=== PATIENT | male | born 1990 ===

== ENCOUNTER 2017-07-01 11:43 | Emergency (ER) | payer OTHER ==
[2017-07-01 11:47] VITALS: BMI 48.6
[2017-07-01] MEDS ORDERED: Oxycodone/Acetaminophen 5/325 mg Tab PO ONE (13:15)
--- NOTE | 2017-07-01 13:35 | ED PDOC ---
Lower Extremity Pain/Injury Time Seen by Provider: 07/01/17 11:50 Chief Complaint (Nursing): Lower Extremity Problem/Injury Chief Complaint (Provider): Right knee injury History Per: Patient History/Exam Limitations: no limitations Onset/Duration Of Symptoms: Mins Current Symptoms Are (Timing): Still Present Additional Complaint(s): 26yo male, presents to ED for evaluation of right knee pain present since earlier today. Patient states he was lifting a heavy object and did not bear his weight properly after which his knee gave out and he fell. Patient states he has not been able to bear weight, bend or move his right knee. He denies any numbness or tingling. No other complaints. - Knee Description Of Injury: Twisted Currently Unable To: Bear Weight, Straighten, Bend Or Move Past Medical History Reviewed: Historical Data, Nursing Documentation, Vital Signs Vital Signs: Last Vital Signs Temp 98.3 F 07/01/17 11:48 Pulse 69 07/01/17 11:48 Resp 18 07/01/17 11:48 BP 126/56 L 07/01/17 11:48 Pulse Ox 98 07/01/17 11:48 - Medical History PMH: No Chronic Diseases - Surgical History Surgical History: No Surg Hx - Family History Family History: States: No Known Family Hx - Social History Current smoker - smoking cessation education provided: No Alcohol: None Drugs: Denies - Immunization History Hx Tetanus Toxoid Vaccination: No Hx Influenza Vaccination: No Hx Pneumococcal Vaccination: No - Home Medications Home Medications: Ambulatory Orders Medication Instructions Recorded No Known Home Med 03/21/17 - Allergies Allergies/Adverse Reactions: Allergies Allergy/AdvReac Type Severity Reaction Status Date / Time No Known Allergies Allergy Unverified 03/21/17 21:34 Review of Systems ROS Statement: Except As Marked, All Systems Reviewed And Found Negative Musculoskeletal: Positive for: Leg Pain (right knee pain) Neurological: Negative for: Weakness, Numbness Physical Exam - Reviewed Nursing Documentation Reviewed: Yes Vital Signs Reviewed: Yes - Physical Exam Appears: Positive for: Non-toxic. Negative for: Well (+ patient is obese) Skin: Positive for: Normal Color Cardiovascular/Chest: Positive for: Regular Rate, Rhythm Respiratory: Positive for: Normal Breath Sounds. Negative for: Respiratory Distress Extremity: Positive for: Deformity (right knee cap laterally dislocated; neurovascularly intact), Swelling (right knee). Negative for: Normal ROM Neurologic/Psych: Positive for: Alert, Oriented - Laboratory Results Result Diagrams: 07/01/17 16:29 07/01/17 16:29 - ECG O2 Sat by Pulse Oximetry: 98 (RA) Pulse Ox Interpretation: Normal Medical Decision Making Medical Decision Making: Time: 1314 Impression: right knee injury, rule out dislocation Plan: -- XR Right knee -- Percocet 1 tab PO Reassess Time: 1520 XR Right Knee FINDINGS: BONES: There is no acute fracture identified. There is lateral dislocation of the patella. JOINTS: The medial and lateral joint compartments are preserved. JOINT EFFUSION: None. OTHER FINDINGS: None. IMPRESSION: Lateral patellar dislocation Time: 1614 Patient with persistent pain, morphine 4mg ordered. Labs ordered. patient placed in knee immobilizer. Time: 164 Dr. uQezada initially spoke with provider, requesting admission and he will do reduction tomorrow. Afterward he called back to say reduction to be conducted in the ED. Dr. Quezada requesting his anesthesiologist to perform the sedation. Time: 170 Patient to be signed out to Dr. Aragon pending reduction of dislocation and reassessment. Scribe Attestation: Documented by Penelope Piña acting as a scribe for Asim Contreras MD. Provider Attestation: All medical record entries made by the Scribe were at my direction and personally dictated by me. I have reviewed the chart and agree that the record accurately reflects my personal performance of the history, physical exam, medical decision making, and the department course for this patient. I have also personally directed, reviewed, and agree with the discharge instructions and disposition. Disposition - Clinical Impression Clinical Impression: Patellar dislocation - Patient ED Disposition Is Patient to be Admitted: Transfer of Care - Disposition Referrals: FAMILY PROVIDER,NO [Primary Care Provider] - Disposition: Transfer of Care Disposition Time: 17:05 Condition: IMPROVED Additional Instructions: CALL [facility] TO SETUP APPOINTMENT AT THE ORTHOPEDIC CLINIC THIS WEEK. TAKE MOTRIN OR ADVIL FOR PAIN REST AND AVOID STRENUOUS ACTIVITY Instructions: Deep Sedation (ED), Patellar Dislocation (ED), Knee Immobilizer ( ED) Forms: [employer] (Welsh) Patient Signed Over To: Breanne Aragon Handoff Comments: pending reduction of dislocation
--- NOTE | 2017-07-01 14:43 | RAD ---
PROCEDURE: Right Knee Radiographs. HISTORY: knee injury COMPARISON: None. FINDINGS: BONES: There is no acute fracture identified. There is lateral dislocation of the patella. JOINTS: The medial and lateral joint compartments are preserved. JOINT EFFUSION: None. OTHER FINDINGS: None. IMPRESSION: Lateral patellar dislocation
[2017-07-01] MEDS ORDERED: Morphine 4 MG/ML VIAL ONE (16:13)
[2017-07-01] MEDS ORDERED: Morphine 4 MG/ML VIAL IV ONE (16:14)
[2017-07-01 16:33] LABS: BASO # 0.1 K/uL (0.0-0.2); BASO % 0.4 % (0.0-2.0); EOS # 0.1 K/uL (0.0-0.7); EOS % 0.8 % (0.0-4.0); HEMATOCRIT 47.9 % (35.0-51.0); LYMPH # 2.3 K/uL (1.0-4.3); LYMPH % 17.2 % (20.0-40.0); MEAN CELL VOLUME 86.7 fl (80.0-94.0); MEAN CORPUSCULAR HEMOGLOBIN 29.3 pg (27.0-31.0); MEAN CORPUSCULAR HGB CONC 33.8 g/dL (33.0-37.0); MEAN PLATELET VOLUME 10.2 fl (7.2-11.7); NEUT # 10.2 K/uL (1.8-7.0); NEUT % 74.6 % (50.0-75.0); RED CELL DISTRIBUTION WIDTH 13.3 % (11.5-14.5); WHITE BLOOD COUNT 13.7 K/uL (4.8-10.8)
[2017-07-01 16:56] LABS: ALB/GLOB RATIO 1.2 (1.0-2.1); ALKALINE PHOSPHATASE 85 U/L (38-126); ALT/SGPT 76 U/L (21-72); AST/SGOT 33 U/L (17-59); BILIRUBIN,TOTAL 0.4 mg/dl (0.2-1.3); CARBON DIOXIDE 25 mmol/L (22-30); CHLORIDE 108 mmol/L (98-107); GFR AFRICAN-AMERICAN > 60; GLUCOSE,RANDOM 115 mg/dL (75-110); POTASSIUM 4.3 MMOL/L (3.6-5.0); SODIUM 141 mmol/l (132-148); TOTAL PROTEIN 7.9 G/DL (6.3-8.2)
[2017-07-01 17:13] LABS: BLOOD UREA NITROGEN 10 mg/dl (9-20)
[2017-07-01 17:27] VITALS: RESP 19
[2017-07-01] MEDS ORDERED: Propofol 10 mg/ml Inj (20 ML) IV ONE (17:28)
[2017-07-01] MEDS ORDERED: Midazolam 2 MG/2 ML VIAL IV STA (17:28)
[2017-07-01] MEDS ORDERED: Midazolam 2 MG/2 ML VIAL ONE (17:33)
[2017-07-01] MEDS ORDERED: Midazolam 2 MG/2 ML VIAL IV ONE (17:53)
[2017-07-01 19:13] VITALS: BP 126/63; PULSE 74; TEMP 98.6
--- NOTE | 2017-07-02 11:31 | RAD ---
PROCEDURE: Right Knee Radiographs. HISTORY: post reduction COMPARISON: Right knee radiographs 07/01/2017 14:13 p.m.. FINDINGS: BONES: No fracture is appreciated or destructive lesion however the patella remains subluxed laterally but is difficult to accurately characterize due to rotation of the entire knee externally. Repeat AP view can more actually identified location of the patella relative to the distal femur. JOINTS: As above. JOINT EFFUSION: None. OTHER FINDINGS: None. IMPRESSION: Persistent subluxation of the patella laterally is suspected however the patient is rotated externally limiting the proper characterization of the patella and repeat AP view of the right knee is recommended for more accurate interpretation. No interval fracture.
[2017-07-10 17:42] VITALS: O2SAT 98
== END 2017-07-01 19:00 | disposition home or self-care (01) ==
LOC: SUPCPDRO 11:43 → H.ER 11:43
DX: S83.004A Unspecified dislocation of right patella, initial encounter (principal); W19.XXXA Unspecified fall, initial encounter
CPT/HCPCS: 27560; 73560; 73562; 80053; 85025; 85610; 99285; J2250; J2270; J3010